=== PATIENT | female | born 1995 | race Caucasian/White ===

== ENCOUNTER 2024-02-24 23:41 | Emergency (ER) | payer BC ==
[~2024-02-24] VITALS: Ht 160 cm; Wt 88.6 kg
[2024-02-25 01:01] LABS: CHLORIDE 102 MMOL/L (99-107); POTASSIUM 3.4 MMOL/L (3.5-5.1); SODIUM 137 MMOL/L (135-145); TOTAL PROTEIN 7.5 G/DL (6.4-8.2)
[2024-02-25 01:02] LABS: ALBUMIN 3.4 G/DL (3.4-5.0); ALBUMIN/GLOBULIN RATIO 0.8 (1.1-1.5)
[2024-02-25 01:03] LABS: HEMATOCRIT 38.5 % (35.0-45.0); HEMOGLOBIN 13.1 g/dl (12.0-16.0); MEAN CORPUSCULAR HEMOGLOBIN 31.1 PG (27.0-31.0); MEAN CORPUSCULAR HGB CONC 34.1 g/dL (33.0-36.5); MEAN CORPUSCULAR VOLUME 91.2 FL (78-98); RED BLOOD COUNT 4.21 X10'6 (4.20-5.60)
[2024-02-25 01:04] LABS: BASOPHILS % (AUTO) 0.4 % (0-1); EOSINOPHILS % (AUTO) 0.6 % (0-6); LYMPHOCYTES # (AUTO) 0.7 X10'3 (1.1-4.8); LYMPHOCYTES % (AUTO) 10.1 % (21-51); MEAN PLATELET VOLUME 7.8 FL (7.4-10.4); MONOCYTES # (AUTO) 0.5 X10'3 (0-0.9); MONOCYTES % (AUTO) 6.9 % (2-12); NEUTROPHILS # (AUTO) 5.7 X10'3 (1.8-7.7); PLATELET COUNT 300 X10'3 (140-440)
[2024-02-25 01:20] LABS: ALKALINE PHOSPHATASE 102 IU/L (46-116); ANION GAP 10 (8-16); ASPARTATE AMINO TRANSFERASE 13 U/L (10-37); BLOOD UREA NITROGEN 9 MG/DL (7-18); CALCIUM 8.6 MG/DL (8.5-10.1); GLUCOSE 116 MG/DL (70-104); LIPASE 21 U/L (16-77); MAGNESIUM 1.7 MG/DL (1.5-2.4); TOTAL CARBON DIOXIDE 24.9 MMOL/L (24-32); eCRCL 76 ML/MIN; eGFR 74 ML/MIN
[2024-02-25 01:30] LABS: ALANINE AMINOTRANSFERASE 26 U/L (12-78)
[2024-02-25 01:49] LABS: BILIRUBIN,URINE NEGATIVE (Neg); CLARITY,URINE CLEAR (Clear); COLOR,URINE YELLOW (Yellow); GLUCOSE, URINE NEGATIVE (Neg); KETONES,URINE NEGATIVE (Neg); LEUKOCYTE ESTERASE ,URINE NEGATIVE (Neg); NITRITES, URINE NEGATIVE (Neg); OCCULT BLOOD,URINE TRACE-INTACT (Neg); PH,URINE 7.5 (4.8-8.0); PROTEIN,URINE NEGATIVE (Neg); URINE HCG NEGATIVE (NEG); UROBILINOGEN,URINE 0.2 E.U/dL (0.2-1.0)
[2024-02-25 02:08] LABS: ETHANOL < 10 MG/DL (<10)
[2024-02-25 02:08] LABS: UA COLLECTION TYPE CLN CATCH MIDSTREAM
[2024-02-25 02:09] LABS: BACTERIA,URINE FEW /HPF (Neg); SQUAMOUS EPITHELIAL CELL,UR FEW /LPF (FEW); WBC,URINE 0-4 /HPF (0-4)
[2024-02-25 02:10] LABS: MUCUS STRANDS NONE SEEN /LPF (Neg); RBC,URINE NONE SEEN /HPF (0-2)
[2024-02-25 02:30] LABS: URINE AMPHETAMINE SCREEN NEGATIVE (Neg); URINE BARBITUATE SCREEN NEGATIVE (Neg); URINE BENZODIAZEPINES SCREEN NEGATIVE (Neg); URINE CANNABINOID SCREEN NEGATIVE (Neg); URINE COCAINE SCREEN NEGATIVE (Neg); URINE METHADONE SCREEN NEGATIVE (Neg); URINE OPIATE SCREEN NEGATIVE (Neg); URINE PHENCYCLIDINE SCREEN NEGATIVE (Neg)
[2024-02-25] MEDS ORDERED: ONDA-243 PO (02:39)
[2024-02-25] MEDS: potassium Cl 20 mEq SR tablet PO ONE (02:54)
[2024-02-25] MEDS: magnesium oxide 400mg tablet PO ONE (02:54)
[2024-02-25] MEDS: normal saline 1000ML IV soln IVB ONE (02:54)
[2024-02-25] MEDS: ondansetron/PF 4mg/2ml inj IV ONE (02:54)
[2024-02-25 03:19] VITALS: BP 127/91; PULSE 99; RESP 18; TEMP 98.5; O2SAT 98
== END 2024-02-25 03:16 | disposition home or self-care (01) ==
LOC: ER 23:42
DX: R11.2 Nausea with vomiting, unspecified (principal); E87.6 Hypokalemia; R25.2 Cramp and spasm; R19.7 Diarrhea, unspecified; R68.83 Chills (without fever); F12.90 Cannabis use, unspecified, uncomplicated; D64.9 Anemia, unspecified; Z72.89 Other problems related to lifestyle
CPT/HCPCS: 36415; 80053; 80305; 80320; 81001; 81025; 83690; 83735; 85025; 93005; 96374; 99285; J2405; J7030